=== PATIENT | male | born 1945 | race Caucasian/White ===

== ENCOUNTER 2017-11-24 00:17 | Emergency (ER) | payer MEDICARE, BC ==
[2017-11-24] MEDS ORDERED: ALUMINUM/MAGNESIUM 30 ML SUS ONE (00:43)
[2017-11-24] MEDS ORDERED: LIDOCAINE HCL 2% (VISCOUS) 20 ML SOL ONE (00:43)
[2017-11-24 00:44] LABS: BASOPHILS % (AUTO) 1 % (0-3); EOSINOPHILS % (AUTO) 1 % (0-9); HEMATOCRIT 39 % (39-53); MEAN CORPUSCULAR HGB CONC 35.5 gm/dl (32.0-36.0); MEAN CORPUSCULAR VOLUME 89 fL (80-100); MONOCYTES % (AUTO) 8.3 % (0-12); NEUTROPHILS % (AUTO) 70.4 % (37-80)
[2017-11-24] MEDS ORDERED: SODIUM CHLORIDE 0.9% 1000ML 1,000 ML IV SCH (00:45)
[2017-11-24] MEDS ORDERED: ALUMINUM/MAGNESIUM 30 ML SUS PO ONE (00:47)
[2017-11-24] MEDS ORDERED: LIDOCAINE HCL 2% (VISCOUS) 20 ML SOL PO ONE (00:47)
[2017-11-24 01:04] LABS: ALBUMIN 3.7 gm/dl (3.4-5.0); ALT 31 IU/L (14-63); CALCIUM 9.2 mg/dl (8.5-10.1); GLOM FILT RATE 59 mL/min (>60); POTASSIUM 3.8 mMol/L (3.5-5.1); SODIUM 142 mMol/L (136-145)
[2017-11-24] MEDS ORDERED: FENTANYL 100MCG/2ML SOL IV ONE ×2 (01:13→01:31)
[2017-11-24] MEDS ORDERED: FENTANYL 100MCG/2ML SOL ONE ×2 (01:14→01:33)
[2017-11-24 02:10] VITALS: BP 171/78; PULSE 45; RESP 13; TEMP 97.2; O2SAT 94
[2017-11-24] MEDS ORDERED: KETOROLAC TROMETHAMINE 30 MG/ML SOL ONE (02:24)
[2017-11-24] MEDS ORDERED: KETOROLAC TROMETHAMINE 30 MG/ML SOL IV ONE (02:24)
== END 2017-11-24 02:51 | disposition short-term general hospital (02) | DRG 392 ==
LOC: ED 00:17
DX: R10.13 Epigastric pain (principal); R00.1 Bradycardia, unspecified; K80.20 Calculus of gallbladder without cholecystitis without obstruction
CPT/HCPCS: 74176; 80053; 84484; 85025; 93005; 99285; J1885; J3010; A9270-GY

== ENCOUNTER 2018-01-12 16:53 | Emergency (ER) | payer MEDICARE, BC ==
[2018-01-12 17:06] VITALS: TEMP 97.5
[2018-01-12] MEDS ORDERED: LIDOCAINE HCL 2% (VISCOUS) 20 ML SOL MT ONE (17:06)
[2018-01-12] MEDS ORDERED: ALUMINUM/MAGNESIUM 30 ML SUS PO ONE (17:06)
[2018-01-12] MEDS ORDERED: ALUMINUM/MAGNESIUM 30 ML SUS ONE (17:08)
[2018-01-12] MEDS ORDERED: LIDOCAINE HCL 2% (VISCOUS) 20 ML SOL ONE (17:08)
[2018-01-12 17:15] LABS: BASOPHILS % (AUTO) 0 % (0-3); EOSINOPHILS % (AUTO) 0 % (0-9); HEMATOCRIT 44 % (39-53); MEAN CORPUSCULAR HGB CONC 34.8 gm/dl (32.0-36.0); MEAN CORPUSCULAR VOLUME 91 fL (80-100); MONOCYTES % (AUTO) 6.2 % (0-12); NEUTROPHILS % (AUTO) 82.6 % (37-80)
[2018-01-12 17:27] LABS: ALBUMIN 3.7 gm/dl (3.4-5.0); ALKALINE PHOSPHATASE 137 IU/L (46-116); ALT 657 IU/L (14-63); AST 796 IU/L (15-37); BILIRUBIN,TOTAL 1.8 mg/dl (0.2-1.0); BLOOD UREA NITROGEN 15 mg/dl (7-18); CALCIUM 8.8 mg/dl (8.5-10.1); CREATININE 1.12 mg/dl (0.80-1.30); GLOM FILT RATE 64 mL/min (>60); GLUCOSE 138 mg/dl (74-106); POTASSIUM 3.9 mMol/L (3.5-5.1); SODIUM 139 mMol/L (136-145)
[2018-01-12] MEDS ORDERED: NITROGLYCERIN 0.4 MG TAB SL PRN (17:27)
[2018-01-12] MEDS ORDERED: ASPIRIN 81 MG CHEWABLE CTB PO ONE (17:27)
[2018-01-12] MEDS ORDERED: NITROGLYCERIN 0.4 MG TAB SL ONE (17:29)
[2018-01-12] MEDS ORDERED: ASPIRIN 81 MG CHEWABLE CTB ONE (17:29)
[2018-01-12 19:15] VITALS: BP 134/91; PULSE 77; RESP 23; O2SAT 93
== END 2018-01-12 18:12 | disposition home or self-care (01) | DRG 392 ==
LOC: ED 16:53
DX: R10.13 Epigastric pain (principal); R10.9 Unspecified abdominal pain; R74.8 Abnormal levels of other serum enzymes
CPT/HCPCS: 80053; 82150; 84484; 85025; 93005; 99284; A9270-GY

== ENCOUNTER 2018-03-04 21:35 | Emergency (ER) | payer MEDICARE, BC ==
[2018-03-04 21:49] VITALS: RESP 16; TEMP 97; O2SAT 93
[2018-03-04 22:06] LABS: BASOPHILS % (AUTO) 1 % (0-3); EOSINOPHILS % (AUTO) 1 % (0-9); HEMATOCRIT 39 % (39-53); HEMOGLOBIN 13.7 gm/dl (13.5-17.7); LYMPHOCYTES % (AUTO) 12.5 % (10-50); MEAN CORPUSCULAR HEMOGLOBIN 30.9 pg (27.0-32.0); MEAN CORPUSCULAR HGB CONC 35.4 gm/dl (32.0-36.0); MEAN CORPUSCULAR VOLUME 87 fL (80-100); MONOCYTES % (AUTO) 7.2 % (0-12); NEUTROPHILS % (AUTO) 78.8 % (37-80)
[2018-03-04 22:12] LABS: APPEARANCE,URINE Clear; BILIRUBIN,URINE NEGATIVE (NEGATIVE); COLOR,URINE Yellow; GLUCOSE, URINE (UA) NEGATIVE (NEGATIVE); KETONES,URINE NEGATIVE (NEGATIVE); LEUKOCYTE ESTERASE ,URINE NEGATIVE (NEGATIVE); NITRATE,URINE NEGATIVE (NEGATIVE); OCCULT BLOOD,URINE NEGATIVE (NEG-TRACE); PH,URINE 5.5; UROBILINOGEN,URINE 0.2 (0.2-1.0 EU)
[2018-03-04] MEDS ORDERED: SODIUM CHLORIDE 0.9% 1000ML 1,000 ML IV SCH ×2 (22:15→22:27)
[2018-03-04 22:23] LABS: ALBUMIN 3.2 gm/dl (3.4-5.0); ALKALINE PHOSPHATASE 69 IU/L (46-116); ALT 25 IU/L (14-63); AST 18 IU/L (15-37); BILIRUBIN,TOTAL 0.5 mg/dl (0.2-1.0); BLOOD UREA NITROGEN 17 mg/dl (7-18); CALCIUM 8.9 mg/dl (8.5-10.1); CARBON DIOXIDE 25.4 mEq/L (21-32); CHLORIDE 103 mMol/L (98-107); GLOM FILT RATE 33 mL/min (>60); GLUCOSE 120 mg/dl (74-106); SODIUM 139 mMol/L (136-145); TOTAL PROTEIN 6.7 gm/dl (6.4-8.2); TROP I < 0.017 ng/ml (0.000-0.056)
[2018-03-04] MEDS ORDERED: MORPHINE SULFATE 10 MG/ML SOL IV ONE (22:28)
[2018-03-04] MEDS ORDERED: ONDANSETRON HCL 4 MG/2 ML SOL IV ONE (22:28)
[2018-03-04 22:31] LABS: BACTERIA NEGATIVE (< 1+); CRYSTALS NEGATIVE (0-3 AVE/HPF); EPITHELIAL CELLS 0-2 (SQUAMOUS); RBC,URINE NEG (0-3AV/HPF); WBC,URINE NEG (0-5AV/HPF)
[2018-03-04 22:36] VITALS: BP 153/93; PULSE 73
== END 2018-03-04 23:40 | disposition home or self-care (01) | DRG 552 ==
LOC: ED 21:35
DX: M54.5 Low back pain (principal); I70.90 Unspecified atherosclerosis; N28.9 Disorder of kidney and ureter, unspecified; K44.9 Diaphragmatic hernia without obstruction or gangrene; K57.90 Diverticulosis of intestine, part unspecified, without perforation or abscess without bleeding
CPT/HCPCS: 36415; 74176; 80053; 81001; 84484; 85025; 96365; 99283; 99284

== ENCOUNTER 2019-03-19 18:57 | Emergency (ER) | payer MEDICARE, BC ==
[2019-03-19 19:08] VITALS: RESP 20; TEMP 99.4
[2019-03-19 20:24] LABS: BASOPHILS % (AUTO) 0 % (0-3); EOSINOPHILS % (AUTO) 0 % (0-9); HEMATOCRIT 40 % (39-53); HEMOGLOBIN 13.5 gm/dl (13.5-17.7); LYMPHOCYTES % (AUTO) 5.1 % (10-50); MEAN CORPUSCULAR HEMOGLOBIN 31.1 pg (27.0-32.0); MEAN CORPUSCULAR HGB CONC 33.7 gm/dl (32.0-36.0); MEAN CORPUSCULAR VOLUME 92 fL (80-100); NEUTROPHILS % (AUTO) 89.4 % (37-80)
[2019-03-19 20:43] LABS: ALBUMIN 3.5 gm/dl (3.4-5.0); ALKALINE PHOSPHATASE 73 IU/L (46-116); ALT 21 IU/L (14-63); AST 14 IU/L (15-37); BILIRUBIN,TOTAL 1.4 mg/dl (0.2-1.0); BLOOD UREA NITROGEN 14 mg/dl (7-18); CALCIUM 8.7 mg/dl (8.5-10.1); CARBON DIOXIDE 25.5 mEq/L (21-32); CHLORIDE 102 mMol/L (98-107); CRP INFLAMMATORY 6.58 mg/dl (0.00-0.33); GLUCOSE 119 mg/dl (74-106); MAGNESIUM 1.8 mg/dl (1.8-2.4); POTASSIUM 3.8 mMol/L (3.5-5.1); SODIUM 136 mMol/L (136-145); TROP I < 0.017 ng/ml (0.000-0.056)
[2019-03-19 21:12] LABS: INFLUENZA A NEGATIVE (NEGATIVE); INFLUENZA B NEGATIVE (NEGATIVE)
[2019-03-19] MEDS ORDERED: CEFTRIAXONE 1 GM PDS 1 GM in SODIUM CHLORIDE 0.9% 50 ML 50 ML IV ONE (21:17)
[2019-03-19] MEDS ORDERED: AZITHROMYCIN 250 MG TAB PO ONE (21:17)
[2019-03-19] MEDS ORDERED: CEFTRIAXONE 1 GM PDS ONE (21:20)
[2019-03-19] MEDS ORDERED: AZITHROMYCIN 250 MG TAB ONE (22:21)
[2019-03-19 22:50] VITALS: BP 136/75; PULSE 70; O2SAT 90
== END 2019-03-19 22:37 | disposition home or self-care (01) | DRG 195 ==
LOC: ED 18:57
DX: J18.1 Lobar pneumonia, unspecified organism (principal)
CPT/HCPCS: 71046; 80053; 83735; 84484; 85025; 87040; 87804; 93005; 96365; 99284; 99285; J0696; A9270-GY